=== PATIENT | female | born 1980 | race Caucasian/White ===

== ENCOUNTER 2024-02-24 12:09 | Emergency (ER) | payer OTHER ==
--- NOTE | 2024-02-24 13:42 | ED ---
Extremity Problem HPI - General Chief complaint: Extremity Problem,Nontraumatic Stated complaint: Left leg pain Time Seen by Provider: 02/24/24 13:39 Source: patient, RN notes reviewed Mode of arrival: ambulatory Limitations: no limitations - History of Present Illness Initial comments: 43-year-old female presenting with left leg pain x 2 weeks. Describes a constant dull pain in the left thigh that radiates down the leg. Pain is worse with dorsiflexion. She also noticed that her spider veins on the left thigh have become more prominent. Denies trauma or injury. Denies difficulty ambulating. She has never had this before. She is currently on a control patch, however denies recent surgeries, travel, history of blood clots. she is a non-smoker. Patient states she has severe health anxiety since the passing of her parents and her . - Related Data Allergies Allergy/AdvReac Type Severity Reaction Status Date / Time No Known Allergies Allergy Verified 02/24/24 12:11 Review of Systems ROS Statement: Those systems with pertinent positive or pertinent negative responses have been documented in the HPI. ROS Other: All systems not noted in ROS Statement are negative. Past Medical History Past Medical History: No Reported History Past Surgical History: Orthopedic Surgery Additional Past Surgical History / Comment(s): carpal tunnel Smoking Status: Never smoker Past Alcohol Use History: None Reported Past Drug Use History: None Reported General Exam Limitations: no limitations General appearance: alert, in no apparent distress, anxious, other (Anxious and tearful during exam. Patient states she has severe health anxiety since the passing of her parents and her ) Head exam: Present: atraumatic, normocephalic, normal inspection Left Hip exam: Present: normal inspection, full ROM. Absent: tenderness, swelling Upper Leg exam: Present: full ROM. Absent: normal inspection (Minor spider veins present on anterior left thigh), tenderness, swelling Knee exam: Present: normal inspection, full ROM. Absent: tenderness, swelling Lower Leg exam: Present: normal inspection, full ROM. Absent: tenderness, swelling Ankle exam: Present: normal inspection, full ROM. Absent: tenderness, swelling Foot/Toe exam: Present: normal inspection, full ROM. Absent: tenderness, swelling Neurovascular tendon exam: Present: no vascular compromise. Absent: pulse deficit, abnormal cap refill, motor deficit Neurological exam: Present: alert, oriented X3 Psychiatric exam: Present: normal affect, anxious Skin exam: Present: warm, dry, intact, normal color. Absent: rash Course Vital Signs 02/24/24 02/24/24 12:11 15:20 Temperature 98.4 F 98.1 F Pulse Rate 107 H 95 Respiratory 20 18 Rate Blood Pressure 153/87 150/89 O2 Sat by Pulse 100 99 Oximetry Medical Decision Making - Medical Decision Making Was pt. sent in by a medical professional or institution (, PA, NISSAN SALES CONSULTANT, urgent care, hospital, or long-term...) When possible be specific @ -No Did you speak to anyone other than the patient for history (EMS, parent, family, police, friend...)? What history was obtained from this source @ -No Did you review nursing and triage notes (agree or disagree)? Why? @ -I reviewed and agree with nursing and triage notes Were old charts reviewed (outside hosp., previous admission, EMS record, old EKG, old radiological studies, urgent care reports/EKG's, long-term records)? Report findings @ -No old charts were reviewed Differential Diagnosis (chest pain, altered mental status, abdominal pain women, abdominal pain men, vaginal bleeding, weakness, fever, dyspnea, syncope, h eadache, dizziness, GI bleed, back pain, seizure, CVA, palpatations, mental health, musculoskeletal)? @ -Differential Musculoskeletal Muscular strain, contusion, ligament sprain, fracture, arthritis, septic arthritis, bursitis, cellulitis, muscle spasm, nerve compression, DVT, arterial occlusion, herpes zoster, electrolyte abnormality, tumor.... This is not meant to be in all inclusive list EKG interpreted by me (3pts min.). @ -None X-rays interpreted by me (1pt min.). @ -None done CT interpreted by me (1pt min.). @ -None done U/S interpreted by me (1pt. min.). @ -Ultrasound left lower extremity negative for DVT What testing was considered but not performed or refused? (CT, X-rays, U/S, labs)? Why? @ -None What meds were considered but not given or refused? Why? @ -None Did you discuss the management of the patient with other professionals (professionals i.e. , PA, NISSAN SALES CONSULTANT, lab, RT, psych nurse, social work program coordinator, acetylene gas compressor, teacher, investigation officer, rn case mgr)? Give summary @ -No Was smoking cessation discussed for >3mins.? @ -No Was critical care preformed (if so, how long)? @ -No Were there social determinants of health that impacted care today? How? (Homelessness, low income, unemployed, alcoholism, drug addiction, transportation, low edu. Level, literacy, decrease access to med. care, correction, rehab)? @ -No Was there de-escalation of care discussed even if they declined (Discuss DNR or withdrawal of care, Hospice)? DNR status @ -No What co-morbidities impacted this encounter? (DM, HTN, Smoking, COPD, CAD, Cancer, CVA, ARF, Chemo, Hep., AIDS, mental health diagnosis, sleep apnea, morbid obesity)? @ -None Was patient admitted / discharged? Hospital course, mention meds given and route, prescriptions, significant lab abnormalities, going to OR and other pertinent info. @ -Discharge. This is a 43-year-old female with left leg pain x 2 weeks. Denies injury or trauma. Neurovascularly intact. No erythema, edema, or sign of bacterial infection. Ultrasound left lower extremity negative for DVT. Negative results discussed with patient. There are no signs of emergent etiology causing symptoms today. Appropriate return precautions and follow-up care discussed. Patient is agreeable to plan. Case was discussed with my ED attending Dr. Cole. Undiagnosed new problem with uncertain prognosis? @ -No Drug Therapy requiring intensive monitoring for toxicity (Heparin, Nitro, Insulin, Cardizem)? @ -No Were any procedures done? @ -No Diagnosis/symptom? @ -Left leg pain Acute, or Chronic, or Acute on Chronic? @ -Acute Uncomplicated (without systemic symptoms) or Complicated (systemic symptoms)? @ -Uncomplicated Side effects of treatment? @ -No Exacerbation, Progression, or Severe Exacerbation? @ -No Poses a threat to life or bodily function? How? (Chest pain, USA, VT, pneumonia, PE, COPD, DKA, ARF, appy, cholecystitis, CVA, Diverticulitis, Homicidal, Suicidal, threat to staff... and all critical care pts) @ -No Disposition Clinical Impression: Muscle strain of left thigh Disposition: HOME SELF-CARE Condition: Stable Instructions (If sedation given, give patient instructions): Muscle Strain (ED) Additional Instructions: Take ibuprofen as needed for pain. Follow-up with PCP as discussed. Please return to the Emergency Department if symptoms worsen or any other concerns. Is patient prescribed a controlled substance at d/c from ED?: No Referrals: Tirso Rock DO [Primary Care Provider] - 1-2 days Time of Disposition: 15:12
[2024-02-24] MEDS: IBUPROFEN 600 MG TAB PO STA (14:03)
--- NOTE | 2024-02-24 14:56 | US ---
EXAMINATION TYPE: US venous doppler duplex LE LT DATE OF EXAM: 02/24/2024 2:01 PM COMPARISON: None. CLINICAL INDICATION: Female, 43 years old with history of left leg pain; pain, Pain TECHNIQUE: The lower extremity deep venous system is examined utilizing real time linear array sonog santiago with graded compression, color doppler sonography, and spectral doppler. SIDE PERFORMED: Left FINDINGS: VESSELS IMAGED: Common Femoral Vein Deep Femoral Vein Greater Saphenous Vein Femoral Vein Popliteal Vein Small Saphenous Vein Proximal Calf Veins Left Leg: Negative for DVT, Color Doppler imaging shows patency of the vessels. Spectral waveforms a re within normal limits. IMPRESSION: No ultrasound evidence for deep venous thrombosis. [facility], , 02/24/2024 2:54 PM
[2024-02-24 15:22] VITALS: BP 150/89; PULSE 95; RESP 18; TEMP 98.1
== END 2024-02-24 15:22 | disposition home or self-care (01) ==
LOC: EC 12:09
DX: S76.912A Strain of unspecified muscles, fascia and tendons at thigh level, left thigh, initial encounter (principal); F41.9 Anxiety disorder, unspecified; X58.XXXA Exposure to other specified factors, initial encounter
CPT/HCPCS: 99283

== ENCOUNTER 2024-03-18 08:47 | Emergency (ER) | payer OTHER ==
--- NOTE | 2024-03-18 10:04 | ED ---
Extremity Problem HPI - General Chief complaint: Extremity Problem,Nontraumatic Stated complaint: lt knee pain Time Seen by Provider: 03/18/24 09:03 Source: patient, RN notes reviewed Mode of arrival: wheelchair Limitations: no limitations - History of Present Illness Initial comments: 43-year-old female presents emergency department complaint of left knee pain. Patient states that she had some issues at the end of February states it was improving but states now she started having creasing pain, swelling and a charley horse feeling. Patient states that she cannot bend all the way she states that she can put weight on it but states it is extremely painful. Patient denies any back pain denies any bowel, bladder and cons retention no falls. - Related Data Allergies Allergy/AdvReac Type Severity Reaction Status Date / Time No Known Allergies Allergy Verified 03/18/24 09:20 Review of Systems ROS Statement: Those systems with pertinent positive or pertinent negative responses have been documented in the HPI. ROS Other: All systems not noted in ROS Statement are negative. Past Medical History Past Medical History: No Reported History Past Surgical History: Orthopedic Surgery Additional Past Surgical History / Comment(s): carpal tunnel Smoking Status: Never smoker Past Alcohol Use History: None Reported Past Drug Use History: None Reported General Exam Limitations: no limitations General appearance: alert, in no apparent distress Head exam: Present: atraumatic, normocephalic, normal inspection Respiratory exam: Present: normal lung sounds bilaterally. Absent: respiratory distress, wheezes, rales, rhonchi, stridor Cardiovascular Exam: Present: regular rate, normal rhythm, normal heart sounds. Absent: systolic murmur, diastolic murmur, rubs, gallop, clicks Extremities exam: Present: other (Knee pain range of motion, limited range of motion neurovascular intact there is lateral knee tenderness, pain with posterior drawer tests and valgus) Course Vital Signs 03/18/24 03/18/24 09:21 11:50 Temperature 98.7 F 98.1 F Pulse Rate 114 H 109 H Respiratory 20 18 Rate Blood Pressure 145/84 148/87 O2 Sat by Pulse 98 97 Oximetry Medical Decision Making - Medical Decision Making Was pt. sent in by a medical professional or institution (, PA, HELICOPTER REPAIRER, urgent care, hospital, or fci...) When possible be specific @ -No Did you speak to anyone other than the patient for history (EMS, parent, family, police, friend...)? What history was obtained from this source @ -No Did you review nursing and triage notes (agree or disagree)? Why? @ -I reviewed and agree with nursing and triage notes Were old charts reviewed (outside hosp., previous admission, EMS record, old EKG, old radiological studies, urgent care reports/EKG's, [facility]ci records)? Report findings @ -No old charts were reviewed Differential Diagnosis (chest pain, altered mental status, abdominal pain women, abdominal pain men, vaginal bleeding, weakness, fever, dyspnea, syncope, headache, dizziness, GI bleed, back pain, seizure, CVA, palpatations, mental health, musculoskeletal)? @ -Ligamentous injury knee, DVT, leg fracture EKG interpreted by me (3pts min.). @ -None X-rays interpreted by me (1pt min.). @ -X-ray left knee no acute osseous abnormality no effusion CT interpreted by me (1pt min.). @ -None done U/S interpreted by me (1pt. min.). @ -Mild swelling venous Doppler left leg negative for acute DVT What testing was considered but not performed or refused? (CT, X-rays, U/S, labs)? Why? @ -None What meds were considered but not given or refused? Why? @ -None Did you discuss the management of the patient with other professionals (professionals i.e. , PA, HELICOPTER REPAIRER, lab, RT, psych nurse, 7th grade social studies teacher, funeral location manager, teacher, aoc plans intelligence officer chief, manager of case)? Give summary @ -No Was smoking cessation discussed for >3mins.? @ -No Was critical care preformed (if so, how long)? @ -No Were there social determinants of health that impacted care today? How? (Homelessness, low income, unemployed, alcoholism, drug addiction, transportation, low edu. Level, literacy, decrease access to med. care, alf, rehab)? @ -No Was there de-escalation of care discussed even if they declined (Discuss DNR or withdrawal of care, Hospice)? DNR status @ -No What co-morbidities impacted this encounter? (DM, HTN, Smoking, COPD, CAD, Cancer, CVA, ARF, Chemo, Hep., AIDS, mental health diagnosis, sleep apnea, morbid obesity)? @ -None Was patient admitted / discharged? Hospital course, mention meds given and route, prescriptions, significant lab abnormalities, going to OR and other pertinent info. @ -Discharge patient has more likely ligamentous injury of the left knee patient imaging is negative will follow-up with orthopedics. Return parameters umu. Undiagnosed new problem with uncertain prognosis? @ -No Drug Therapy requiring intensive monitoring for toxicity (Heparin, Nitro, Insulin, Cardizem)? @ -No Were any procedures done? @ -No Diagnosis/symptom? @ -Knee ligamentous injury left Acute, or Chronic, or Acute on Chronic? @ -Acute Uncomplicated (without systemic symptoms) or Complicated (systemic symptoms)? @ -[Uncomplicated Side effects of treatment? @ -No Exacerbation, Progression, or Severe Exacerbation? @ -No Poses a threat to life or bodily function? How? (Chest pain, USA, OR, pneumonia, PE, COPD, DKA, ARF, appy, cholecystitis, CVA, Diverticulitis, Homicidal, Suicidal, threat to staff... and all critical care pts) @ -No Disposition Clinical Impression: Injury of ligament of left knee Disposition: HOME SELF-CARE Condition: Stable Instructions (If sedation given, give patient instructions): Knee Pain (ED) Additional Instructions: Please return to the Emergency Department if symptoms worsen or any other concerns. Is patient prescribed a controlled substance at d/c from ED?: No Referrals: Tirso Rock DO [Primary Care Provider] - 1-2 days Fabricio Ly MD [STAFF PHYSICIAN] - 1-2 days Time of Disposition: 11:15
--- NOTE | 2024-03-18 10:38 | XR ---
EXAMINATION TYPE: XR knee complete LT DATE OF EXAM: 03/18/2024 10:30 AM COMPARISON: None CLINICAL INDICATION: Female, 43 years old with history of pain, pain TECHNIQUE: XR knee complete LT 3 views submitted. FINDINGS: No evidence of any acute osseous pathology, soft tissue swelling, or joint effusion is no marcin. IMPRESSION: No acute osseous pathology. [facility], , 03/18/2024 10:36 AM
--- NOTE | 2024-03-18 10:48 | US ---
EXAMINATION TYPE: US venous doppler duplex LE LT DATE OF EXAM: 03/18/2024 10:20 AM COMPARISON: NONE CLINICAL INDICATION: Female, 43 years old with history of pain; Fell about 2 weeks ago, Pain TECHNIQUE: The lower extremity deep venous system is examined utilizing real time linear array sonog santiago with graded compression, color doppler sonography, and spectral doppler. SIDE PERFORMED: Left FINDINGS: VESSELS IMAGED: Common Femoral Vein Deep Femoral Vein Greater Saphenous Vein * Femoral Vein Popliteal Vein Small Saphenous Vein * Proximal Calf Veins (* superficial vessels) Right Leg: NA, Left Leg: Negative for DVT, Color Doppler imaging shows patency of the vessels. Spectral waveforms a re within normal limits. IMPRESSION: No ultrasound evidence for deep venous thrombosis. [facility], , 03/18/2024 10:46 AM
[2024-03-18] MEDS: HYDROcodone/APAP 5-325MG 1 EACH TAB PO STA (11:39)
[2024-03-18] MEDS: ACET/COD 300 MG/30 MG STARTER PACK 6 TAB BTL PO STA (11:39)
[2024-03-18 11:51] VITALS: BP 148/87; PULSE 109; RESP 18; TEMP 98.1
== END 2024-03-18 11:52 | disposition home or self-care (01) ==
LOC: EC 08:47
DX: S89.92XA Unspecified injury of left lower leg, initial encounter (principal); X50.1XXA Overexertion from prolonged static or awkward postures, initial encounter
CPT/HCPCS: 73562; 93971; 99284; L1830

== ENCOUNTER → 2024-04-03 | Outpatient (CLI) | payer OTHER ==
--- NOTE | 2024-04-04 13:33 | MR ---
EXAMINATION TYPE: MR knee LT wo con DATE OF EXAM: 04/03/2024 9:40 PM COMPARISON: None. CLINICAL INDICATION: Female, 43 years old with history of M25.562, Left knee pain, Slipped in Feb IV Contrast: cc (None if empty) TECHNIQUE: Multiplanar, multisequence imaging of the left knee is performed without IV contrast. FINDINGS: There is no bone contusion or fracture. There is no joint effusion. There is a complex tear of the posterior horn and body medial meniscus. The lateral meniscus is intac t. The cruciate and collateral ligaments are intact. There is mild abnormal increased signal intensity in the patellar cartilage surface of the cartilage is irregular consistent with mild fraying. The articular cartilages of the medial and lateral compart ments are well preserved. IMPRESSION: 1. Tear of the medial meniscus as described above. 2. Chondromalacia patella. 3. No ligamentous injury. 4. No bone contusion or fracture. [facility], , 04/04/2024 1:31 PM
== END | disposition home or self-care (01) ==
LOC: RADMRIMAIN 21:05
PROVIDERS: ATTEND Orthopaedic Surgery
DX: S83.242A Other tear of medial meniscus, current injury, left knee, initial encounter (principal); M22.42 Chondromalacia patellae, left knee